=== PATIENT | male | born 1985 | race Caucasian/White ===

== ENCOUNTER → 2023-06-25 | Emergency (ER) | payer OTHER ==
[~2023-06-25] MED LIST: LEVETIRACETAM 500 MG/5 ML VIAL IV ONE; LORazepam 2 MG/ML VIAL ONE; MORPHINE 4 MG/ML SYR ONE; NA CHLORIDE 0.9% 1,000 ML ONE; NA CHLORIDE 0.9% 100 ML ONE
[2023-06-25 12:57] LABS: Absolute Lymphocytes (CBC) 2.5 K/uL (0.7-4.9); Hematocrit 44.3 % (39.6-49.0); Lymphocytes % 40.8 % (15.3-44.8); MCV 90.6 fL (80-100); MPV 11.1 fL (7.6-11.3); Platelets 119 thou/uL (152-406); RBC Red Blood Cell Count 4.89 M/uL (4.33-5.43)
[2023-06-25 13:04] LABS: Protime INR 1.13
--- NOTE | 2023-06-25 13:06 | RAD REPORT ---
EXAM DESCRIPTION: CT - Head Brain Wo Cont - 06/25/2023 12:56 pm CLINICAL HISTORY: seizure, hx of brain mass, still has small area COMPARISON: No comparisons TECHNIQUE: All CT scans are performed using dose optimization technique as appropriate and may inclu de automated exposure control or mA/KV adjustment according to patient size. FINDINGS: No intracranial hemorrhage, hydrocephalus or extra-axial fluid collection.There is hypoden sity along the right superior frontal white matter tracts. There is craniotomy present along the righ t calvarium focal intermediate density 15 mm crescentic lesion is present in the region, incompletely assessed by CT. The paranasal sinuses and mastoids are clear. IMPRESSION: No acute intracranial abnormality.
--- NOTE | 2023-06-25 13:06 | RAD REPORT ---
EXAM DESCRIPTION: RAD - Chest Single View - 06/25/2023 1:01 pm CLINICAL HISTORY: seizure Chest pain. COMPARISON: <Comparisons> FINDINGS: Portable technique limits examination quality. The lungs are grossly clear. The heart is normal in size. No displaced fractures. IMPRESSION: No acute intrathoracic process suspected.
[2023-06-25 13:16] LABS: Albumin 3.8 g/dL (3.4-5.0); Bilirubin Direct 0.3 mg/dL (0-0.2); Bilirubin Indirect, Calculated 0.7 mg/dL (0.2-0.8); Troponin High Sensitivity 13.2 pg/mL (<58.9)
--- NOTE | 2023-06-25 15:36 | EDPHYS ---
Physician Documentation [facility] Name: Mark Valdivia Age: 38 yrs Sex: Male : 1985 Arrival Date: 06/25/2023 Time: 12:41 Bed 3 Private MD: ED Physician Kem Pappas HPI: 06/25 14:49 This 38 yrs old Male presents to ER via EMS with complaints of Seizure. rn 14:49 The patient presents with a history of multiple seizures, an unknown number. Character rn of seizure(s): Motor activity: generalized, Incontinence: none, Circulation: the patient did not experience evidence of pulse disturbance, Eye movements: are unknown. Seizure onset: just prior to arrival. Associated injury: The patient did not suffer any apparent associated injury. Current symptoms: headache. The patient has experienced similar episodes in the past. Patient reports history of brain cancer with resection and chemotherapy in the past. Still has small lesion in the brain. Takes 3 different seizure medication and has been compliant. Increased number of seizures since last night, 3 total now. Denies recent illness or fever. No trauma after seizure. No medications given by EMS.. Historical: - Allergies: 12:45 No Known Allergies; ll1 - PMHx: 12:45 brain CA; Seizure; ll1 - PSHx: 12:45 brain SX; ll1 - Immunization history:: Adult Immunizations up to date. - Social history:: Smoking status: Patient reports the use of cigarette tobacco products, smokes .25 packs per day. - Family history:: not pertinent. - Hospitalizations: : No recent hospitalization is reported. ROS: 15:32 Constitutional: Negative for fever, chills, and weight loss, Neck: Negative for injury, rn pain, and swelling, Cardiovascular: Negative for chest pain, palpitations, and edema, Respiratory: Negative for shortness of breath, cough, wheezing, and pleuritic chest pain, Abdomen/GI: Negative for abdominal pain, nausea, vomiting, diarrhea, and constipation, MS/Extremity: Negative for injury and deformity, Skin: Negative for injury, rash, and discoloration, Neuro: Negative for weakness, numbness, tingling Exam: 15:32 Constitutional: This is a well developed, well nourished patient who is awake, alert, rn and in no acute distress. Head/Face: Normocephalic, atraumatic. Eyes: Pupils equal round and reactive to light, extra-ocular motions intact. Neck: No Meningismus. No masses Cardiovascular: Regular rate and rhythm. No pulse deficits. Respiratory: No increased work of breathing, no retractions or nasal flaring. Abdomen/GI: Soft, non-tender MS/ Extremity: Pulses equal, no cyanosis. Neurovascular intact. Full, normal range of motion. Equal circumference. Neuro: Awake and alert, GCS 15, oriented to person, place, time, and situation. Vital Signs: 12:42 BP 135 / 108; Pulse 77; Resp 17; Temp 98.6(TE); Pulse Ox 99% on R/A; Weight 99.79 kg; ll1 Height 5 ft. 8 in. ; Pain 10/10; 13:26 BP 155 / 94; Pulse 84; Resp 18; Pulse Ox 100% on R/A; mb9 14:20 BP 128 / 93; Pulse 80; Resp 16; Pulse Ox 100% on R/A; mb9 15:49 BP 142 / 86; Pulse 74; Resp 16; Pulse Ox 100% on R/A; mb9 12:42 Body Mass Index 33.45 (99.79 kg, 172.72 cm) ll1 12:42 Pain Scale: Adult ll1 Noemí Coma Score: 12:55 Eye Response: spontaneous(4). Motor Response: obeys commands(6). Verbal Response: mb9 oriented(5). Total: 15. MDM: 12:44 Patient medically screened. rn 15:32 Differential diagnosis: seizure, Brain mass. Data reviewed: vital signs, nurses notes, rn mds coordinator test result(s), radiologic studies, CT scan, and as a result, I will discharge patient. Counseling: I had a detailed discussion with the patient and/or guardian regarding the historical points, exam findings, and any diagnostic results supporting the discharge/admit diagnosis, lab results, radiology results, the need for outpatient follow up, to return to the emergency department if symptoms worsen or persist or if there are any questions or concerns that arise at home. Response to treatment: the patient's symptoms have markedly improved after treatment, the patient's symptoms have resolved after treatment, the patient's condition has returned to base line, the patient is now symptom free, and as a result, I will discharge patient. Special discussion: I discussed with the patient/guardian in detail that at this point there is no indication for admission to the hospital. It is understood, however, that if the symptoms persist or worsen the patient needs to return immediately for re-evaluation. Based on the history and exam findings, there is no indication for further emergent testing or inpatient evaluation. I discussed with the patient/guardian the need to see the gimp tacker/oncologist for further evaluation of the symptoms. I discussed with the patient/guardian the need to see the primary care provider for further evaluation of the symptoms. ED course: CT without acute findings. No acute findings on workup either. Patient afebrile with stable vital signs. Loaded with Keppra and Ativan and no further seizures. Observed here in the ER for 3 hours and patient back to baseline, using his phone, smiling, joking. Will discharge home with continuation of his seizure medications and recommend urgent follow-up with his neurologist and oncologist. Also recommend patient MRI to ensure no recurrence of cancer. 06/25 12:45 Order name: Basic Metabolic Panel; Complete Time: rn 06/25 12:45 Order name: CBC with Diff; Complete Time: rn 06/25 12:45 Order name: LFT's; Complete Time: rn 06/25 12:45 Order name: PT-INR; Complete Time: rn 06/25 12:45 Order name: Troponin HS; Complete Time: rn 06/25 13:21 Order name: Glucose, Ancillary Testing; Complete Time: 13: EDNY 06/25 12:45 Order name: CT Head Brain wo Cont; Complete Time: :06/25 12:45 Order name: XRAY Chest (1 view); Complete Time: :06/25 12:45 Order name: EKG; Complete Time: 12: rn 06/25 12:45 Order name: Cardiac monitoring; Complete Time: : rn 06/25 12:45 Order name: EKG - Nurse/Tech; Complete Time: :06/25 12:45 Order name: IV Saline Lock; Complete Time: :06/25 12:45 Order name: Labs collected and sent; Complete Time: :06/25 12:45 Order name: O2 Per Protocol; Complete Time: 12:53 rn 06/25 12:45 Order name: O2 Sat Monitoring; Complete Time: 12:53 rn 06/25 12:45 Order name: Glucose Level; Complete Time: 13:07 rn Administered Medications: 12:53 Drug: Ativan IVP 2 mg IVP once Route: IVP; Site: right antecubital; mb9 13:07 Follow up: Response: No adverse reaction mb9 13:05 Drug: Keppra IV 1000 mg IV at calculated rate once Route: IV; Rate: calculated rate; ll1 Site: right antecubital; 14:22 Follow up: Response: No adverse reaction; IV Status: Completed infusion mb9 13:06 Drug: NS 0.9% IV 1000 ml IV at 1000 ml once Route: IV; Rate: 1000 ml; Site: right mb9 antecubital; 14:22 Follow up: Response: No adverse reaction; IV Status: Completed infusion mb9 14:06 Drug: morphine IVP or IV 4 mg IVP once over 4 mins Route: IVP; Infused Over: 4 mins; rs5 Site: right antecubital; 15:07 Follow up: Response: No adverse reaction mb9 Point of Care Testing: Blood Glucose: 13:09 Blood Glucose: 88 mg/dL; rs5 Ranges: Critical Glucose Levels:Adult <50 mg/dl or >400 mg/dl <40 mg/dl or >180 mg/dl Disposition Summary: 06/25/23 15:35 Discharge Ordered Notes: Location: Home rn Problem: an ongoing problem rn Symptoms: have improved rn Condition: Stable rn Diagnosis - Epileptic seizures related to external causes, not intractable rn Followup: rn - With: Private Physician - When: As needed - Reason: Recheck today's complaints, Re-evaluation by your physician Discharge Instructions: - Discharge Summary Sheet rn - Seizure, Adult rn Forms: - Medication Reconciliation Form rn - Thank You Letter rn - Antibiotic tool grinder operator external - Prescription Opioid Use rn - Patient Portal Instructions rn - Leadership Thank You Letter rn Signatures: Dispatcher [employer] Kem Hastings MD MD rn Lewis, Lynsay RN RN ll1 Mariam Putnam RN RN mb9 Sherwin Johnson, RN RN rs5 Corrections: (The following items were deleted from the chart) 15:33 14:49 Patient reports history of brain cancer with resection and chemotherapy in the rn past. Still has small lesion in the brain. Takes 3 different seizure medication and has been compliant. Increased number of seizures since last night, 3 total now.. rn
--- NOTE | 2023-06-25 15:36 | ER ---
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 Small 10 second seizure en route. Had a "normal seizure" last night. EMS states: 20 G R AC, no meds in route. Coronavirus screen: Client denies travel out of the [place] in the last 14 days. At this time, the client does not indicate any symptoms associated with coronavirus-19. Ebola Screen: Patient denies travel to an Ebola-affected area in the 21 days before illness onset. Initial Sepsis Screen: Does the patient meet any 2 criteria? No. Patient's initial sepsis screen is negative. Does the patient have a suspected source of infection? No. Patient's initial sepsis screen is negative. Risk Assessment: Do you want to hurt yourself or someone else? Patient reports no desire to harm self or others. Onset of symptoms was June 24, 2023. 12:42 Method Of Arrival: EMS ll1 12:42 Acuity: QUINCY 2 ll1 Historical: - Allergies: 12:45 No Known Allergies; ll1 - PMHx: 12:45 brain CA; Seizure; ll1 - PSHx: 12:45 brain SX; ll1 - Immunization history:: Adult Immunizations up to date. - Social history:: Smoking status: Patient reports the use of cigarette tobacco products, smokes .25 packs per day. - Family history:: not pertinent. - Hospitalizations: : No recent hospitalization is reported. Screenin:55 [facility] ED Fall Risk Assessment (Adult) History of falling in the last 3 months, mb9 including since admission No falls in past 3 months (0 pts) Confusion or Disorientation No (0 pts) Intoxicated or Sedated No (0 pts) Impaired Gait No (0 pts) Mobility Assist Device Used No (0 pt) Altered Elimination No (0 pt) Score/Fall Risk Level 0 - 2 = Low Risk Oriented to surroundings, Maintained a safe environment, Educated pt \\T\\ family on fall prevention, incl call for assistance when getting out of bed. Abuse screen: Denies threats or abuse. Nutritional screening: No deficits noted. Tuberculosis screening: No symptoms or risk factors identified. Assessment: 12:48 Reassessment: pt actively seizing for approximately 15 seconds. ERP notified. mb9 12:53 Reassessment: pt taken to CT via stretcher. mb9 12:54 General: Appears in no apparent distress. Behavior is calm, cooperative. Pain: mb9 Complains of pain in head Pain does not radiate. Pain currently is 8 out of 10 on a pain scale. Quality of pain is described as throbbing, Pain began suddenly. Neuro: Vanessa Agitation-Sedation Scale (RASS): 0 - Alert and Calm Level of Consciousness is awake, alert, obeys commands, Oriented to person, place, time, situation, Appropriate for age Reports headache. Neuro: Pupils are PERRLA. Cardiovascular: Heart tones S1 S2 present Patient's skin is warm and dry. Respiratory: Airway is patent Respiratory effort is even, unlabored, Respiratory pattern is regular, symmetrical, Breath sounds are clear bilaterally. GI: Abdomen is round non-distended, Bowel sounds present X 4 quads. : No signs and/or symptoms were reported regarding the genitourinary system. EENT: No signs and/or symptoms were reported regarding the EENT system. Derm: Skin is pink, warm \\T\\ dry. Musculoskeletal: Range of motion: intact in all extremities. 13:30 Reassessment: pts Michelle cell phone number; [phone]. mb9 13:30 Reassessment: No changes from previously documented assessment. Patient and/or family mb9 updated on plan of care and expected duration. Pain level reassessed. Patient is alert, oriented x 3, equal unlabored respirations, skin warm/dry/pink. 14:55 Reassessment: Patient and/or family updated on plan of care and expected duration. Pain mb9 level reassessed. Patient is alert, oriented x 3, equal unlabored respirations, skin warm/dry/pink. Patient states feeling better. Patient states symptoms have improved. 15:49 Reassessment: No changes from previously documented assessment. Patient and/or family mb9 updated on plan of care and expected duration. Pain level reassessed. Patient is alert, oriented x 3, equal unlabored respirations, skin warm/dry/pink. Vital Signs: 12:42 BP 135 / 108; Pulse 77; Resp 17; Temp 98.6(TE); Pulse Ox 99% on R/A; Weight 99.79 kg; ll1 Height 5 ft. 8 in. ; Pain 10/10; 13:26 BP 155 / 94; Pulse 84; Resp 18; Pulse Ox 100% on R/A; mb9 14:20 BP 128 / 93; Pulse 80; Resp 16; Pulse Ox 100% on R/A; mb9 15:49 BP 142 / 86; Pulse 74; Resp 16; Pulse Ox 100% on R/A; mb9 12:42 Body Mass Index 33.45 (99.79 kg, 172.72 cm) ll1 12:42 Pain Scale: Adult ll1 Noemí Coma Score: 12:55 Eye Response: spontaneous(4). Motor Response: obeys commands(6). Verbal Response: mb9 oriented(5). Total: 15. ED Course: 12:42 Patient arrived in ED. ll1 12:44 Kem Pappas MD is Attending Physician. rn 12:45 Triage completed. ll1 12:46 Arm band placed on Patient placed in an exam room, on a stretcher. ll1 12:48 Mariam Putnam, RN is Primary Nurse. mb9 12:50 No provider procedures requiring assistance completed. Maintain EMS IV. Dressing mb9 intact. Good blood return noted. Site clean \\T\\ dry. Gauge \\T\\ site: 20g right AC. 12:53 Placed in gown. Bed in low position. Call light in reach. Side rails up X 1. Client mb9 placed on continuous cardiac and pulse oximetry monitoring. NIBP monitoring applied. ekg monitor on. 12:53 Seizure precautions initiated. mb9 12:53 Basic Metabolic Panel Sent. mb9 12:53 CBC with Diff Sent. mb9 12:53 LFT's Sent. mb9 12:53 PT-INR Sent. mb9 12:53 Troponin HS Sent. mb9 12:57 CT Head Brain wo Cont In Process Unspecified. EDMS 13:02 XRAY Chest (1 view) In Process Unspecified. EDMS 15:48 IV discontinued, intact, bleeding controlled, No redness/swelling at site. Pressure mb9 dressing applied. Administered Medications: 12:53 Drug: Ativan IVP 2 mg IVP once Route: IVP; Site: right antecubital; mb9 13:07 Follow up: Response: No adverse reaction mb9 13:05 Drug: Keppra IV 1000 mg IV at calculated rate once Route: IV; Rate: calculated rate; ll1 Site: right antecubital; 14:22 Follow up: Response: No adverse reaction; IV Status: Completed infusion mb9 13:06 Drug: NS 0.9% IV 1000 ml IV at 1000 ml once Route: IV; Rate: 1000 ml; Site: right mb9 antecubital; 14:22 Follow up: Response: No adverse reaction; IV Status: Completed infusion mb9 14:06 Drug: morphine IVP or IV 4 mg IVP once over 4 mins Route: IVP; Infused Over: 4 mins; rs5 Site: right antecubital; 15:07 Follow up: Response: No adverse reaction mb9 Medication: 12:55 VIS not applicable for this client. mb9 Point of Care Testing: Blood Glucose: 13:09 Blood Glucose: 88 mg/dL; rs5 Ranges: Outcome: 15:35 Discharge ordered by . rn 15:48 Discharged to home ambulatory, mb9 15:48 Condition: stable 15:48 Discharge instructions given to patient, Instructed on discharge instructions, follow up and referral plans. Demonstrated understanding of instructions, follow-up care, 15:49 Patient left the ED. mb9 Signatures: Dispatcher [employer] EDMS Kem Pappas MD MD rn Lewis, Lynsay, RN RN ll1 Mariam Putnam RN RN mb9 Sherwin Johnson RN RN rs5
[2023-06-25 16:20] VITALS: TEMP 98.6; O2SAT 100
[2023-06-25 16:36] VITALS: BP 142/86
== END ==
LOC: ER 12:41
DX: G40.509 Epileptic seizures related to external causes, not intractable, without status epilepticus (principal); Z85.841 Personal history of malignant neoplasm of brain; F17.210 Nicotine dependence, cigarettes, uncomplicated
CPT/HCPCS: 85025; 80048; 36415; 85610; 82947; 80076; 84484; 70450; 71045; J1953; J7030

== ENCOUNTER → 2023-07-28 | Emergency (ER) | payer OTHER ==
[~2023-07-28] MED LIST changes: +DIPHENHYDRAMINE 50 MG/ML VIAL ONE; -LEVETIRACETAM 500 MG/5 ML VIAL IV ONE; -LORazepam 2 MG/ML VIAL ONE; +METOCLOPRAMIDE 10 MG/2mL INJ ONE; -MORPHINE 4 MG/ML SYR ONE; -NA CHLORIDE 0.9% 100 ML ONE
[2023-07-28 04:01] LABS: Anion Gap 8.4 mEq/L (5.0-15.0); Potassium 3.4 mEq/L (3.5-5.1)
[2023-07-28 04:09] LABS: Absolute Basophils 0.1 K/uL (0-0.5); Absolute Eosinophils 0.3 K/uL (0-0.5); Absolute Lymphocytes (CBC) 3.1 K/uL (0.7-4.9); Absolute Monocytes 0.5 K/uL (0.1-1.3); Absolute Neutrophil 3.9 K/uL (1.8-8.0); Basophils % 0.8 % (0-1.3); Eosinophils % 3.3 % (0-4.4); Hematocrit 42.7 % (39.6-49.0); Hemoglobin 14.8 g/dL (13.6-17.9); Lymphocytes % 39.2 % (15.3-44.8); MCH 31.3 pg (27.0-35.0); MCHC 34.6 g/dL (32.0-36.0); MCV 90.7 fL (80-100); MPV 10.8 fL (7.6-11.3); Monocytes % 6.7 % (3.3-12.3); Nucleated Red Blood Cells % 0.2 % (0-0); Platelets 118 thou/uL (152-406); RBC Red Blood Cell Count 4.71 M/uL (4.33-5.43); Red Cell Distribution Width 13.3 % (12.1-15.2)
--- NOTE | 2023-07-28 05:24 | EDPHYS ---
Physician Documentation [facility] Name: Mark Valdivia Age: 38 yrs Sex: Male : 1985 Arrival Date: 07/28/2023 Time: 02:22 Bed 4 Private MD: SURINDER Physician Monisha Delaney Historical: - Allergies: 07/27 02:34 No Known Allergies; pf1 - PMHx: 02:34 Brain CA; Seizure; Migraine; pf1 02:35 neuropathy; pf1 - PSHx: 02:34 Brain sx; pf1 - Immunization history:: Adult Immunizations up to date, Client reports receiving the Darvin \T\ Darvin single-dose vaccine. Last tetanus immunization: < 5 years ago Flu vaccine is up to date. - Social history:: Smoking status: Patient reports the use of cigarette tobacco products, smokes one-half pack cigarettes per day, Patient/guardian denies using alcohol, street drugs. Vital Signs: 02:25 BP 145 / 96; Pulse 78; Resp 18; Temp 97.9; Pulse Ox 98% on R/A; Weight 99.79 kg; Height pf1 5 ft. 8 in. ; Pain 10/10; 03:30 BP 144 / 98; Pulse 61; Resp 14; Pulse Ox 100% on R/A; vc1 04:30 BP 97 / 65; Pulse 64; Resp 14; Pulse Ox 100% on R/A; Pain 0/10; vc1 02:25 Body Mass Index 33.45 (99.79 kg, 172.72 cm) pf1 02:25 Pain Scale: Adult pf1 04:30 Pain Scale: Adult vc1 Jaffrey Coma Score: 02:25 Eye Response: spontaneous(4). Motor Response: obeys commands(6). Verbal Response: pf1 oriented(5). Total: 15. MDM: 02:27 Patient medically screened. ci 07/27 03:11 Order name: Basic Metabolic Panel; Complete Time: 05:21 ci 07/27 03:11 Order name: CBC with Diff; Complete Time: 05:21 ci 07/27 03:11 Order name: CT Head Brain wo Cont ci 07/27 03:11 Order name: EKG; Complete Time: 03:11 ci 07/27 03:11 Order name: Seizure Precautions; Complete Time: 04:26 ci 07/27 03:11 Order name: Cardiac monitoring; Complete Time: 03:13 ci 07/27 03:11 Order name: EKG - Nurse/Tech; Complete Time: 03:38 ci 07/27 03:11 Order name: IV Saline Lock; Complete Time: 03:13 ci 07/27 03:11 Order name: Labs collected and sent; Complete Time: 03:38 ci 07/27 03:11 Order name: O2 Per Protocol; Complete Time: 03:13 ci 07/27 03:11 Order name: O2 Sat Monitoring; Complete Time: 03:13 ci Administered Medications: 03:30 Drug: diphenhydrAMINE IVP 50 mg IVP once Route: IVP; Site: right antecubital; pf1 03:30 Drug: metoCLOPramide IVP 10 mg IVP once; over 1 to 2 minutes Route: IVP; Site: right pf1 antecubital; 03:30 Drug: NS 0.9% IV 1000 ml IV at 1000 ml once Route: IV; Rate: 1000 ml; Site: right pf1 antecubital; Disposition Summary: 07/28/23 05:24 Discharge Ordered Notes: Location: Home ci Condition: Stable ci Diagnosis - Other seizures - Breakthrough Seizure ci - Headache ci Followup: ci - With: Private Physician - When: 2 - 3 days - Reason: Recheck today's complaints, Re-evaluation by your physician Discharge Instructions: - Discharge Summary Sheet ci - Seizure, Adult, [id number] ci - Migraine Headache, [id number] ci Forms: - Medication Reconciliation Form ci - Thank You Letter ci - Antibiotic Education ci - Prescription Opioid Use ci - Patient Portal Instructions ci - Leadership Thank You Letter ci Signatures: Dispatcher [employer] Melissa Best RN RN pf1 IheMonisha acevedo ci
--- NOTE | 2023-07-28 05:24 | ER ---
Nurse's Notes [facility] Name: Mark Valdivia Age: 38 yrs Sex: Male : 1985 Arrival Date: 07/28/2023 Time: 02:22 Bed 4 Private MD: Diagnosis: Other seizures-Breakthrough Seizure;Headache Presentation: 07/27 02:25 Chief complaint: EMS states: seizure that lasted for approximately 1-2 minutes that was pf1 witness per , onset 0100. Patient C/O headache pain of 10,onset 1.5 weeks. 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 02:25 Coronavirus screen: Vaccine status: Patient reports receiving the 1st dose of the Covid pf1 vaccine. Client denies travel out of the [place] in the last 14 days. At this time, the client does not indicate any symptoms associated with coronavirus-19. Ebola Screen: Patient negative for fever greater than or equal to 101.5 degrees Fahrenheit, and additional compatible Ebola Virus Disease symptoms No symptoms or risks identified at this time. Initial Sepsis Screen: Does the patient meet any 2 criteria? No. Patient's initial sepsis screen is negative. Does the patient have a suspected source of infection? No. Patient's initial sepsis screen is negative. Risk Assessment: Do you want to hurt yourself or someone else? Patient reports no desire to harm self or others. Onset of symptoms was July 28, 2023. Care prior to arrival: Glucose check: 113. 02:25 Method Of Arrival: [facility]: [facility] pf1 02:25 Acuity: QUINCY 3 pf1 Triage Assessment: 02:25 General: Appears in no apparent distress. uncomfortable, well groomed, well developed, pf1 Behavior is calm, cooperative, appropriate for age, quiet. Pain: Complains of pain in frontal and parietal head pain Pain currently is 10 out of 10 on a pain scale. Pain began 1.5 weeks. EENT: No deficits noted. No signs and/or symptoms were reported regarding the EENT system. Neuro: Level of Consciousness is awake, alert, obeys commands, Oriented to person, place, time, situation, Reports headache parietal area, frontal area, since 1.5 weeks seizure,onset 0100. Cardiovascular: No deficits noted. Capillary refill < 3 seconds Patient's skin is warm and dry. Respiratory: No deficits noted. Airway is patent Respiratory effort is even, unlabored, Respiratory pattern is regular, symmetrical, Breath sounds are clear bilaterally. GI: No deficits noted. No signs and/or symptoms were reported involving the gastrointestinal system. Abdomen is round non-distended, Bowel sounds present X 4 quads. : No deficits noted. No signs and/or symptoms were reported regarding the genitourinary system. Derm: No deficits noted. No signs and/or symptoms reported regarding the dermatologic system. Musculoskeletal: No deficits noted. No signs and/or symptoms reported regarding the musculoskeletal system. Historical: - Allergies: 02:34 No Known Allergies; pf1 - PMHx: 02:34 Brain CA; Seizure; Migraine; pf1 02:35 neuropathy; pf1 - PSHx: 02:34 Brain sx; pf1 - Immunization history:: Adult Immunizations up to date, Client reports receiving the Darvin \T\ Darvin single-dose vaccine. Last tetanus immunization: < 5 years ago Flu vaccine is up to date. - Social history:: Smoking status: Patient reports the use of cigarette tobacco products, smokes one-half pack cigarettes per day, Patient/guardian denies using alcohol, street drugs. Screenin:25 [facility] ED Fall Risk Assessment (Adult) History of falling in the last 3 months, pf1 including since admission No falls in past 3 months (0 pts) Confusion or Disorientation No (0 pts) Intoxicated or Sedated No (0 pts) Impaired Gait Yes (1 pt) Mobility Assist Device Used No (0 pt) Altered Elimination No (0 pt) Score/Fall Risk Level 0 - 2 = Low Risk Oriented to surroundings, Maintained a safe environment, Educated pt \T\ family on fall prevention, incl call for assistance when getting out of bed, Assessed \T\ reinforced patient's understanding of fall precautions, Provided non-skid footwear, Hourly rounding (assess needs \T\ fall precautionary measures) done, Used ambulatory aids as needed (educated on \T\ assisted with), Used gait belt as appropriate. Abuse screen: Denies threats or abuse. Nutritional screening: No deficits noted. Tuberculosis screening: No symptoms or risk factors identified. Assessment: 02:41 Reassessment: Patient appears in no apparent distress at this time. Patient and/or pf1 family updated on plan of care and expected duration. Pain level reassessed. Patient is alert, oriented x 3, equal unlabored respirations, skin warm/dry/pink. 03:30 Reassessment: Patient appears in no apparent distress at this time. Patient and/or pf1 family updated on plan of care and expected duration. Pain level reassessed. Patient is alert, oriented x 3, equal unlabored respirations, skin warm/dry/pink. 04:30 Reassessment: Patient appears in no apparent distress at this time. Patient and/or pf1 family updated on plan of care and expected duration. Pain level reassessed. Patient is alert, oriented x 3, equal unlabored respirations, skin warm/dry/pink. Patient states feeling better. Patient states symptoms have improved. Vital Signs: 02:25 BP 145 / 96; Pulse 78; Resp 18; Temp 97.9; Pulse Ox 98% on R/A; Weight 99.79 kg; Height pf1 5 ft. 8 in. ; Pain 10/10; 03:30 BP 144 / 98; Pulse 61; Resp 14; Pulse Ox 100% on R/A; vc1 04:30 BP 97 / 65; Pulse 64; Resp 14; Pulse Ox 100% on R/A; Pain 0/10; vc1 02:25 Body Mass Index 33.45 (99.79 kg, 172.72 cm) pf1 02:25 Pain Scale: Adult pf1 04:30 Pain Scale: Adult vc1 [place] Coma Score: 02:25 Eye Response: spontaneous(4). Motor Response: obeys commands(6). Verbal Response: pf1 oriented(5). Total: 15. ED Course: 02:24 Patient arrived in ED. pf1 02:27 Monisha Delaney is Attending Physician. ci 02:28 Door closed. Noise minimized. Warm blanket given. pf1 02:28 Patient has correct armband on for positive identification. Placed in gown. Seizure pf1 precautions initiated. 02:32 Inserted saline lock: 22 gauge in right antecubital area, using aseptic technique. oe Blood collected. 02:33 Bed in low position. Call light in reach. Side rails up X2. oe 02:34 Triage completed. pf1 03:00 Initial lab(s) drawn, by ED staff, sent to lab. pf1 03:31 No provider procedures requiring assistance completed. pf1 03:31 EKG done, by nutrition technician. reviewed by Monisha Delaney. oe 03:32 CT Head Brain wo Cont In Process Unspecified. EDMS Administered Medications: 03:30 Drug: diphenhydrAMINE IVP 50 mg IVP once Route: IVP; Site: right antecubital; pf1 03:30 Drug: metoCLOPramide IVP 10 mg IVP once; over 1 to 2 minutes Route: IVP; Site: right pf1 antecubital; 03:30 Drug: NS 0.9% IV 1000 ml IV at 1000 ml once Route: IV; Rate: 1000 ml; Site: right pf1 antecubital; Outcome: 05:24 Discharge ordered by . ci 05:47 Patient left the ED. jb4 Signatures: Dispatcher [employer] EDMS Yordan Saucedo RN RN jb4 Austin Alejandro Vanessa RN RN vc1 Melissa Banuelos RN RN pf1 Monisha Delaney ci Corrections: (The following items were deleted from the chart) 04:31 03:31 EKG done, by ED staff, pf1 oe
[2023-07-28 06:26] VITALS: BP 97/65; TEMP 97.9; O2SAT 100
--- NOTE | 2023-07-28 12:48 | RAD REPORT ---
EXAM DESCRIPTION: CT - Head Brain Wo Cont - 07/28/2023 6:40 am CLINICAL HISTORY: HEADACHE, SEIZURE COMPARISON: 06/25/2023. TECHNIQUE: CT HEAD WITHOUT IV CONTRAST on 07/28/2023 3:11 AM CDT This exam was performed according to our departmental dose-optimization program, which includes autom ated exposure control, adjustment of the mA and/or kV according to patient size and/or use of iterati ve reconstruction technique. FINDINGS: There is no acute hemorrhage, mass effect or midline shift. 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 There is no hydrocephalus. There is no significant volume loss for age. Right frontal craniotomy was performed. There is incomplete posterior fusion of the C1 arch. Orbits a nd globes are unremarkable. The paranasal sinuses are clear. Mastoid air cells are clear. IMPRESSION: No acute intracranial findings. Electronically signed by: Devan Liang MD 07/28/2023 04:57 AM CDT Due to temporary technical issues with the PACS/Fluency reporting system, reports are being signed by the in house radiologist without review as a courtesy to ensure prompt reporting. The interpreting r adiologist is fully responsible for the content of the report.
--- NOTE | 2023-07-29 14:11 | EKG ---
Test Date: 2023-07-28 Test Time: 02:30:25 Automatic Brine Mixer Operator: DYLAN MEASUREMENT RESULTS: Intervals: Rate: 61 MT: 144 QRSD: 92 QT: 444 QTc: 446 [place]: P: 39 MT: 144 QRS: -12 T: 34 INTERPRETIVE STATEMENTS: Normal sinus rhythm Normal ECG Compared to ECG 06/25/2023 12:49:12 Sinus arrhythmia no longer present Electronically Signed On 07-29-23 14:06:38 CDT by Joshua Gutierrez
== END ==
LOC: ER 02:22
DX: G40.89 Other seizures (principal); R51.9 Headache, unspecified; Z85.841 Personal history of malignant neoplasm of brain
CPT/HCPCS: 93005; 85025; 80048; 36415; 70450; J2765; J1200; J7030; 96374; 96375; 99284